=== PATIENT | female | born 1935 | race Caucasian/White ===

== ENCOUNTER → 2019-05-05 | Outpatient (CLI) | payer MEDICARE, OTHER ==
--- NOTE | 2019-05-05 14:12 | Diagnostic Imaging Report ---
INDICATION: Chronic cough, dyspnea. TECHNIQUE: Two view chest at 11:09 AM CORRELATION STUDY: None FINDINGS: Given technique and accentuated kyphosis, heart size and vasculature are within normal limits. Findings compatible with at least a small hiatal hernia. Mildly prominent interstitial markings throughout both lung garza. No definitive consolidating infiltrate. There is slight parenchyma in the right lung base with slight tenting of the right diaphragm. Minimal pleural thickening at the costophrenic angles. Accentuated thoracic kyphosis and degenerative changes of the midthoracic spine. IMPRESSION: 1. Likely chronic changes about the lung parenchyma. There is slight asymmetric tenting and perhaps scar-like formation at the right lung base. Given the overall findings and clinical history, consideration might be given to CT imaging of the chest, if clinically warranted. Dictated by: Dictated on workstation # [id number]
== END ==
LOC: RAD 11:02
PROVIDERS: ATTEND Internal Medicine Critical Care Medicine
DX: R06.00 Dyspnea, unspecified (principal); R91.8 Other nonspecific abnormal finding of lung field; R05 Cough
CPT/HCPCS: 71046

== ENCOUNTER → 2019-07-10 | Outpatient (CLI) | payer MEDICARE, OTHER ==
[~2019-07-10] MED LIST: RT-ALBUTEROL SULF 2.5 MG/3 ML PRE-MIX VIAL INH ONE; RT-ALBUTEROL SULF 2.5 MG/3 ML PRE-MIX VIAL ONE
== END ==
LOC: RT 11:51
PROVIDERS: ATTEND Internal Medicine Critical Care Medicine
DX: R06.00 Dyspnea, unspecified (principal); R91.8 Other nonspecific abnormal finding of lung field; R05 Cough
CPT/HCPCS: 94060; 94726; 94729

== ENCOUNTER → 2020-05-03 | Outpatient (CLI) | payer MEDICARE, OTHER ==
[~2020-05-03] MED LIST changes: +HOLD METFORMIN - RECEIVED CONTRAST 20 ML VIAL IV SCH; +IOHEXOL 350 MG/ML 100 ML (OMNIPAQUE 350) VIAL IV ONE; +NS 100 ML (IVPB) BAG IV ONE; -RT-ALBUTEROL SULF 2.5 MG/3 ML PRE-MIX VIAL INH ONE; -RT-ALBUTEROL SULF 2.5 MG/3 ML PRE-MIX VIAL ONE
[2020-05-03 08:31] LABS: CREATININE SERUM 0.98 MG/DL (0.60-1.30)
--- NOTE | 2020-05-03 14:23 | Diagnostic Imaging Report ---
PROCEDURE: CT chest with contrast only. TECHNIQUE: Multiple contiguous axial images were obtained through the chest after administration of intravenous contrast. Auto Exposure Controls were utilized during the CT exam to meet ALARA standards for radiation dose reduction. INDICATION: Follow-up of pulmonary nodule. Dyspnea. Chronic cough. COMPARISON: CT chest performed on 04/10/2019. FINDINGS: TRACHEA AND MAIN BRONCHI: Patent without evidence of tracheal or endobronchial lesion. LUNGS AND PLEURA: Scattered groundglass nodules in the right lung apex which measure 3 to 4 mm are not significantly changed (image 14 series 3). A 4 mm part solid susan-fissural in the superior segment of the right lower lobe adjacent to the major fissure is also unchanged (image 45 series 3). Linear and nodular consolidation in the right lateral costophrenic angle is compatible with scarring and is unchanged. There is mild atelectasis/scarring adjacent to the hiatal hernia in the left lower lobe. The lungs are otherwise clear, without focal consolidation or pulmonary mass. No pleural effusion or pneumothorax. MEDIASTINUM AND MARTHA: Scattered subcentimeter low-attenuation nodules in both thyroid lobes do not appear significantly changed and are of doubtful clinical significance. No further follow-up is recommended for these. No mediastinal or hilar lymphadenopathy. Esophagus is nondistended. HEART AND VESSELS: Heart is at the upper limits of normal for size. No pericardial effusion. Thoracic aorta is nonaneurysmal. DIAPHRAGM AND UPPER ABDOMEN: There is a large paraesophageal hiatal hernia, with a majority of the stomach located in the chest. There is mild circumferential thickening of the distal esophagus, possibly reflecting reflux esophagitis, also seen previously. There is an unchanged cyst in the posterior right hepatic lobe. Additional subcentimeter foci of low-attenuation in the hepatic parenchyma are too small to characterize but are unchanged and also likely represent cysts. There is an exophytic cyst projecting medially off the upper pole of the left kidney. Additional subcentimeter foci of low-attenuation in the left kidney are too small to characterize but also likely represent cysts. Cortical defects in both renal upper poles are similar in appearance to prior exam and possibly reflect areas of scarring. Subtle increased attenuation in the wall of the gallbladder is unchanged and may reflect adenomyomatosis. CHEST WALL: Unremarkable. BONES: Mild degenerative changes involve the spine. There is increased thoracic kyphosis. No acute osseous abnormality. IMPRESSION: No acute cardiopulmonary process. No significant change in CT appearance of the chest, including scattered pulmonary nodules in the right lower lobe and scarring in the right lateral costophrenic angle. Other chronic and incidental findings are detailed above, including large paraesophageal hiatal hernia. Dictated by: Dictated on workstation # [id number]
== END ==
LOC: RAD 07:53
PROVIDERS: ATTEND Internal Medicine Critical Care Medicine
DX: R91.8 Other nonspecific abnormal finding of lung field (principal); K44.9 Diaphragmatic hernia without obstruction or gangrene; K76.89 Other specified diseases of liver; N28.1 Cyst of kidney, acquired; M40.294 Other kyphosis, thoracic region; M47.819 Spondylosis without myelopathy or radiculopathy, site unspecified; E04.2 Nontoxic multinodular goiter
CPT/HCPCS: 36415; 71260; 82565; 84520

== ENCOUNTER → 2021-05-29 | Outpatient (CLI) | payer MEDICARE, OTHER ==
[~2021-05-29] MED LIST changes: +CATHETER FLUSH 10 ML SYR IV PRN
[2021-05-29 11:27] LABS: CREATININE SERUM 0.89 MG/DL (0.60-1.30)
--- NOTE | 2021-05-29 16:29 | Diagnostic Imaging Report ---
EXAMINATION: CT chest with intravenous contrast. TECHNIQUE: Multiple contiguous axial images were obtained through the chest after the uneventful administration of intravenous contrast. All CT scans use one or more of the following dose optimizing techniques: automated exposure control, MA and/or KvP adjustment based on patient size and exam type or iterative reconstruction. HISTORY: Multiple nodules of lung. COMPARISON: CT chest 05/03/2020. FINDINGS: Thyroid: There is a subcentimeter right thyroid nodule which is unchanged and requires no follow-up. Mediastinum: Heart size is mildly enlarged without significant pericardial effusion. Calcifications of the aorta and coronary vessels. Thoracic aorta is normal in caliber. No suspicious lymphadenopathy. Lungs and airways: The lungs are clear without consolidation, pleural effusion, or pneumothorax. Stable 0.4 cm ground glass nodule in the right upper lobe (series 3 image 16). Stable 0.4 cm subpleural groundglass nodule in the right upper lobe (series 3 image 33). Stable subpleural scarring along the lateral right lower lobe. Stable 0.3 cm pulmonary nodule within the right lower lobe (series 2 image 54). No new suspicious pulmonary nodules. Atelectasis and/or scarring within the left lung base. The airways are normal. Upper abdomen: There is a large paraesophageal hernia with adjacent atelectasis. Bilateral renal cortical scarring and cysts which require no follow-up. Stable hepatic hypodensities. Musculoskeletal: Degenerative changes of the spine without suspicious osseous lesion or compression fracture. IMPRESSION: 1. Stable subcentimeter bilateral pulmonary nodules. No new suspicious pulmonary lesion. No change from 05/03/2020. Recommend continued CT follow-up in 6-12 months to document longer term stability. 2. No new acute abnormality in the chest. 3. Large paraesophageal hernia. Dictated by: Dictated on workstation # [id number]
== END ==
LOC: RAD 12:15
PROVIDERS: ATTEND Nurse Practitioner Family
DX: R91.8 Other nonspecific abnormal finding of lung field (principal); K44.9 Diaphragmatic hernia without obstruction or gangrene
CPT/HCPCS: 36415; 71260; 82565; 84520